=== PATIENT | male | born 1965 ===

== ENCOUNTER 2019-08-29 10:12 | Day surgery (SDC) | payer OTHER ==
[~2019-08-29 10:12] MED LIST: HYDROmorphone 0.5 MG/0.5 ML SYRINGE IVP PRN; LACTATED RINGERS 1,000 ML IV SCH; LIDOCAINE 1% (10MG/ML) FOR IV START INTRADERMA PRN; ONDANSETRON 4 MG/2 ML VIAL IVP PRN; Pre Op ABX Message 1 EACH MISC MISCELLANE ONE
[2019-08-29 11:57] LABS: Glucose,Whole Blood 150 mg/dL (75-99)
[2019-08-29] MEDS ORDERED: ONDANSETRON 4 MG/2 ML VIAL ONE (12:04)
[2019-08-29] MEDS ORDERED: MIDAZOLAM 2 MG/2 ML VIAL IVP ONE (12:20)
[2019-08-29] MEDS ORDERED: PROPOFOL 10 MG/ML 20 ML VIAL IV ONE (12:56)
[2019-08-29] MEDS ORDERED: SUCCINYLCHOLINE CHLORIDE 100 MG/5 ML SYR IV ONE (12:56)
[2019-08-29] MEDS ORDERED: DEXAMETHASONE SOD PHOSPHATE 10 MG/ML 1 ML VIAL ONE (12:56)
[2019-08-29] MEDS ORDERED: fentaNYL (PF) 50 MCG/ML 2 ML AMP ONE (12:56)
[2019-08-29] MEDS ORDERED: MIDAZOLAM 2 MG/2 ML VIAL ONE (12:56)
[2019-08-29] MEDS ORDERED: LIDOCAINE 1%-EPI 1:100,000 20 ML VIAL SQ ONE ×2 (13:26→14:09)
[2019-08-29] MEDS ORDERED: LACTATED RINGERS 1,000 ML IV ONE (14:09)
[2019-08-29 14:47] VITALS: TEMP 97.3
[2019-08-29 14:55] VITALS: RESP 16
[2019-08-29 14:56] LABS: Glucose,Whole Blood 143 mg/dL (75-99)
[2019-08-29] MEDS ORDERED: HYDROcodone/APAP 5-325MG 1 EACH TAB ONE (15:27)
[2019-08-29] MEDS ORDERED: HYDROcodone/APAP 5-325MG 1 EACH TAB PO ONE (15:28)
[2019-08-29 15:44] VITALS: BP 143/86; PULSE 110
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
== END 2019-08-29 16:01 ==
LOC: OR 10:12
PROVIDERS: ATTEND Orthopaedic Surgery
DX: S60.042A Contusion of left ring finger without damage to nail, initial encounter (principal); S66.315A Strain of extensor muscle, fascia and tendon of left ring finger at wrist and hand level, initial encounter; L98.0 Pyogenic granuloma; I10 Essential (primary) hypertension; E11.9 Type 2 diabetes mellitus without complications; F20.9 Schizophrenia, unspecified; K21.9 Gastro-esophageal reflux disease without esophagitis; Z79.84 Long term (current) use of oral hypoglycemic drugs; Z79.899 Other long term (current) drug therapy; Z98.890 Other specified postprocedural states; Z87.891 Personal history of nicotine dependence; Y04.1XXA Assault by human bite, initial encounter
CPT/HCPCS: 88305; 87070; 87205; 87075; 87116; 87102; 87206; 11423; 26180; 11043; 26075; J2250; J1100; J2405; J0696; J3010; J0330; J2704

== ENCOUNTER 2020-03-18 13:08 | Observation (INO) | payer OTHER ==
[2020-03-18] MEDS ORDERED: ONDANSETRON 4 MG/2 ML VIAL IVP STA (14:03)
[2020-03-18] MEDS ORDERED: SODIUM CHLORIDE 0.9% 1,000 ML IV STA ×2 (14:03→16:21)
[2020-03-18] MEDS ORDERED: FAMOTIDINE 20 MG/2 ML VIAL IV STA (14:03)
[2020-03-18] MEDS ORDERED: MAG HYDROX/AL HYDROX/SIMETH 30 ML, HYOSCYAMINE ELIXIR 10 ML, LIDOCAINE VISCOUS 2% 10 ML PO STA ×3 (14:03)
--- NOTE | 2020-03-18 14:10 | ED ---
General Adult HPI - General Chief complaint: Abdominal Pain Stated complaint: Abd Pain Time Seen by Provider: 03/18/20 13:42 Source: patient, RN notes reviewed Mode of arrival: ambulatory Limitations: no limitations - History of Present Illness Initial comments: 55-year-old male with a past medical history of diabetes mellitus, hyperlipidemia, hypertension presents to the emergency room for a chief complaint of upper abdominal pain. Patient reports he has had upper abdominal pain for 2 months. It has been constant. States it is worsening. It is a sharp pain. Denies alleviating or aggravating factors. Patient did have an ultrasound January 08 which revealed enlarged liver without mass or lesion. Tiny gallstones without bile duct dilation. There is a large simple cyst lower pole left kidney. Patient does take meloxicam daily As well as omeprazole daily. Patient admits to nausea vomiting. States he did vomit once this morning and is currently nauseous. Denies diarrhea. Denies fevers. Patient has no other complaints at this time including shortness of breath, chest pain, headache, or visual changes. - Related Data Home Medications Medication Instructions Recorded Confirmed Atorvastatin [Lipitor] 20 mg PO HS 08/25/19 03/18/20 DULoxetine HCL [Cymbalta] 120 mg PO HS 08/25/19 03/18/20 Divalproex [Depakote] 1,500 mg PO HS 08/25/19 03/18/20 Metoprolol Tartrate [Lopressor] 50 mg PO BID 08/25/19 03/18/20 amLODIPine BESYLATE 10 mg PO DAILY 08/25/19 03/18/20 hydrOXYzine pamoate [hydrOXYzine 150 mg PO HS 08/25/19 03/18/20 PAMOATE] hydroCHLOROthiazide [Hydrodiuril] 12.5 mg PO DAILY 08/25/19 03/18/20 Benztropine Mesylate [Cogentin] 1 mg PO HS 03/18/20 03/18/20 Docusate Sodium [Dok] 100 mg PO BID PRN 03/18/20 03/18/20 Magnesium Hydroxide [Milk of 2,400 mg PO HS 03/18/20 03/18/20 Magnesia] Meloxicam [Mobic] 15 mg PO HS 03/18/20 03/18/20 Omeprazole 40 mg PO DAILY 03/18/20 03/18/20 QUEtiapine [SEROquel] 100 mg PO DAILY 03/18/20 03/18/20 QUEtiapine [SEROquel] 400 mg PO HS 03/18/20 03/18/20 Tamsulosin [Flomax] 0.4 mg PO HS 03/18/20 03/18/20 metFORMIN HCL 850 mg PO BID 03/18/20 03/18/20 Previous Rx's Medication Instructions Recorded Amoxic-Pot Clav 875-125Mg 1 tab PO Q12HR 14 Days #28 tab 08/29/19 [Augmentin 875-125] Allergies Allergy/AdvReac Type Severity Reaction Status Date / Time No Known Allergies Allergy Verified 03/18/20 13:52 Review of Systems ROS Statement: Those systems with pertinent positive or pertinent negative responses have been documented in the HPI. ROS Other: All systems not noted in ROS Statement are negative. Past Medical History Past Medical History: Diabetes Mellitus, Hyperlipidemia, Hypertension History of Any Multi-Drug Resistant Organisms: Unobtainable Past Surgical History: Hernia Repair Additional Past Surgical History / Comment(s): pt states Past Anesthesia/Blood Transfusion Reactions: Motion Sickness Additional Past Anesthesia/Blood Transfusion Reaction / Comment(s): pt states Past Psychological History: Bipolar, Schizophrenia Smoking Status: Current some day smoker Past Alcohol Use History: None Reported Past Drug Use History: None Reported - Past Family History Mother History Unknown: Yes Family Medical History: Diabetes Mellitus General Exam Limitations: no limitations General appearance: alert, in no apparent distress Head exam: Present: atraumatic, normal inspection Eye exam: Present: normal appearance, PERRL, EOMI. Absent: periorbital swelling ENT exam: Present: normal exam, mucous membranes moist Neck exam: Present: normal inspection, full ROM. Absent: tenderness Respiratory exam: Present: normal lung sounds bilaterally. Absent: respiratory distress Cardiovascular Exam: Present: regular rate, normal rhythm, normal heart sounds GI/Abdominal exam: Present: soft, distended, tenderness (mild epigastric tenderness. No right upper quadrant or left upper quadrant tenderness. No lower abdominal tenderness.), normal bowel sounds. Absent: guarding, rebound, rigid Expanded GI/Abdominal exam: Absent: Alexis's sign Back exam: Absent: CVA tenderness (R), CVA tenderness (L) Neurological exam: Present: alert Course Vital Signs 03/18/20 13:23 Temperature 98.8 F Pulse Rate 72 Respiratory 18 Rate Blood Pressure 146/86 O2 Sat by Pulse 97 Oximetry Medical Decision Making - Medical Decision Making Vitals are stable. CBC CMP unremarkable. However patient does have pyelonephritis with nitrite-positive urine and a lactic acidosis of 2.5. Patient does not technically meet sepsis criteria but was treated with fluids and antibiotics. CT abdomen and pelvis was obtained which shows wide-shaped enhancement within the upper pole of both kidneys clinically correlated with pyelonephritis as well as bladder wall thickening. There is a slightly nodular configuration of the inferior lingula, recommended 3 month follow-up and remainder of the lung survey. Patient is currently in custody of [facility]. Discussed case with Dr. Kirkpatrick. At this time we felt it was appropriate to admit patient for IV antibiotics pending urine culture. - Lab Data Result diagrams: 03/18/20 15:00 03/18/20 15:00 Lab Results 03/18/20 03/18/20 03/18/20 Range/Units 15:00 15:00 15:00 WBC 7.8 (3.8-10.6) k/uL RBC 5.89 (4.30-5.90) m/uL Hgb 14.4 (13.0-17.5) gm/dL Hct 44.7 (39.0-53.0) % MCV 75.8 L (80.0-100.0) fL MCH 24.4 L (25.0-35.0) pg MCHC 32.2 (31.0-37.0) g/dL RDW 12.2 (11.5-15.5) % Plt Count 190 (150-450) k/uL MPV 9.5 Neutrophils % 65 % Lymphocytes % 19 % Monocytes % 7 % Eosinophils % 6 % Basophils % 1 % Neutrophils # 5.0 (1.3-7.7) k/uL Lymphocytes # 1.5 (1.0-4.8) k/uL Monocytes # 0.6 (0-1.0) k/uL Eosinophils # 0.5 (0-0.7) k/uL Basophils # 0.1 (0-0.2) k/uL Sodium 137 (137-145) mmol/L Potassium 4.3 (3.5-5.1) mmol/L Chloride 100 (98-107) mmol/L Carbon Dioxide 27 (22-30) mmol/L Anion Gap 10 mmol/L BUN 15 (9-20) mg/dL Creatinine 0.79 (0.66-1.25) mg/dL Est GFR (CKD-EPI)AfAm >90 (>60 ml/min/1.73 sqM) Est GFR (CKD-EPI)NonAf >90 (>60 ml/min/1.73 sqM) Glucose 144 H (74-99) mg/dL Plasma Lactic Acid Issa 2.5 H* (0.7-2.0) mmol/L Calcium 9.6 (8.4-10.2) mg/dL Total Bilirubin 0.7 (0.2-1.3) mg/dL AST 52 (17-59) U/L ALT 59 H (4-49) U/L Alkaline Phosphatase 49 (38-126) U/L Total Protein 7.4 (6.3-8.2) g/dL Albumin 4.3 (3.5-5.0) g/dL Amylase 47 (30-110) U/L Lipase 39 (23-300) U/L Urine Color Urine Appearance (Clear) Urine pH (5.0-8.0) Ur Specific [place] (1.001-1.035) Urine Protein (Negative) Urine Glucose (UA) (Negative) Urine Ketones (Negative) Urine Blood (Negative) Urine Nitrite (Negative) Urine Bilirubin (Negative) Urine Urobilinogen (<2.0) mg/dL Ur Leukocyte Esterase (Negative) Urine RBC (0-5) /hpf Urine WBC (0-5) /hpf Urine WBC Clumps (None) /hpf Urine Bacteria (None) /hpf 03/18/20 Range/Units 15:44 WBC (3.8-10.6) k/uL RBC (4.30-5.90) m/uL Hgb (13.0-17.5) gm/dL Hct (39.0-53.0) % MCV (80.0-100.0) fL MCH (25.0-35.0) pg MCHC (31.0-37.0) g/dL RDW (11.5-15.5) % Plt Count (150-450) k/uL MPV Neutrophils % % Lymphocytes % % Monocytes % % Eosinophils % % Basophils % % Neutrophils # (1.3-7.7) k/uL Lymphocytes # (1.0-4.8) k/uL Monocytes # (0-1.0) k/uL Eosinophils # (0-0.7) k/uL Basophils # (0-0.2) k/uL Sodium (137-145) mmol/L Potassium (3.5-5.1) mmol/L Chloride (98-107) mmol/L Carbon Dioxide (22-30) mmol/L Anion Gap mmol/L BUN (9-20) mg/dL Creatinine (0.66-1.25) mg/dL Est GFR (CKD-EPI)AfAm (>60 ml/min/1.73 sqM) Est GFR (CKD-EPI)NonAf (>60 ml/min/1.73 sqM) Glucose (74-99) mg/dL Plasma Lactic Acid Issa (0.7-2.0) mmol/L Calcium (8.4-10.2) mg/dL Total Bilirubin (0.2-1.3) mg/dL AST (17-59) U/L ALT (4-49) U/L Alkaline Phosphatase (38-126) U/L Total Protein (6.3-8.2) g/dL Albumin (3.5-5.0) g/dL Amylase (30-110) U/L Lipase (23-300) U/L Urine Color Yellow Urine Appearance Turbid (Clear) Urine pH 7.5 (5.0-8.0) Ur Specific [place] 1.016 (1.001-1.035) Urine Protein 2+ H (Negative) Urine Glucose (UA) Negative (Negative) Urine Ketones Negative (Negative) Urine Blood Large H (Negative) Urine Nitrite Positive (Negative) Urine Bilirubin Negative (Negative) Urine Urobilinogen <2.0 (<2.0) mg/dL Ur Leukocyte Esterase Large H (Negative) Urine RBC >182 H (0-5) /hpf Urine WBC >182 H (0-5) /hpf Urine WBC Clumps Many H (None) /hpf Urine Bacteria Rare H (None) /hpf Disposition Clinical Impression: Pyelonephritis Disposition: ADMITTED IP TO THIS HOSP Is patient prescribed a controlled substance at d/c from ED?: No Referrals: None,Stated [Primary Care Provider] - 1-2 days Time of Disposition: 16:28 Decision Date: 03/18/20 Decision Time: 16:28
[2020-03-18 15:05] LABS: Basophils # (A) 0.1 k/uL (0-0.2); Basophils % (A) 1 %; Eosinophils # (A) 0.5 k/uL (0-0.7); Eosinophils % (A) 6 %; HCT 44.7 % (39.0-53.0); HGB 14.4 gm/dL (13.0-17.5); Lymphocytes # (A) 1.5 k/uL (1.0-4.8); Lymphocytes % (A) 19 %; MCH 24.4 pg (25.0-35.0); MCHC 32.2 g/dL (31.0-37.0); MCV 75.8 fL (80.0-100.0); Mean Platelet Volume 9.5; Monocytes # (A) 0.6 k/uL (0-1.0); Monocytes % (A) 7 %; Neutrophils % (A) 65 %; Platelet Count 190 k/uL (150-450); RBC 5.89 m/uL (4.30-5.90); RDW 12.2 % (11.5-15.5); WBC 7.8 k/uL (3.8-10.6)
[2020-03-18 15:13] LABS: Potassium 4.3 mmol/L (3.5-5.1)
[2020-03-18 15:14] LABS: ALT 59 U/L (4-49); AST 52 U/L (17-59); African American GFR (CKD) >90 (>60 ml/min/1.73 sqM); Albumin 4.3 g/dL (3.5-5.0); Alkaline Phosphatase 49 U/L (38-126); Amylase 47 U/L (30-110); Anion Gap 10 mmol/L; Blood Urea Nitrogen 15 mg/dL (9-20); Calcium 9.6 mg/dL (8.4-10.2); Carbon Dioxide 27 mmol/L (22-30); Chloride 100 mmol/L (98-107); Glucose 144 mg/dL (74-99); Lipase 39 U/L (23-300); Non-African American GFR(CKD) >90 (>60 ml/min/1.73 sqM); Sodium 137 mmol/L (137-145); Total Bilirubin 0.7 mg/dL (0.2-1.3); Total Protein 7.4 g/dL (6.3-8.2)
--- NOTE | 2020-03-18 16:02 | CT ---
EXAMINATION TYPE: CT abdomen pelvis w con DATE OF EXAM: 03/18/2020 COMPARISON: NONE HISTORY: 55-year-old male Generalized abdominal pain TECHNIQUE: Contiguous axial scanning of the abdomen and pelvis following administration of 100 ml Iso loly 300 IV contrast. Delayed images through the kidneys and coronal/sagittal reconstructions perform ed. CT DLP: 909.7 mGycm Automated exposure control for dose reduction was used. FINDINGS: Heart normal size with trace anterior pericardial fluid. Some strandy atelectasis or scarring at the inferior lingula and peripheral right base. The density at the inferior lingula has a somewhat nodula r configuration measuring up to 7 mm. 3 month follow-up CT chest to reassess. Liver enlarged measuring 20.2 cm with mild fatty infiltration given decreased attenuation. Portal john ous system is patent. No biliary ductal dilatation. Gallbladder, right adrenal gland, spleen, and pancreas within normal limits. Left renal cysts are present measuring up to 4.4 cm. Additional numerous bilateral hepatic hypodensit ies are too small fractures. CT characterization. These also likely represent cysts. However, there is a wedge-shaped area of hypoenhancement within the upper pole of both kidneys, axial image 37 on the right and axial image 34 in the left on the delayed kidney images. No dilated small bowel, free fluid, or free air. No mesenteric or retroperitoneal lymphadenopathy. Normal appendix. There is mild to moderate stool burden. Redundant sigmoid colon. No pericolonic infl ammatory change. Mild circumferential bladder wall thickening. Prostate gland measures 4.7 cm wide. No abnormal fluid collection in the pelvis or pelvic lymphadenopathy. Bones: Mild degenerative change of the hips. Mild degenerative change of the SI joints. Facet arthrop athy mid to lower lumbar spine. No osseous destructive process. IMPRESSION: 1. WEDGE-SHAPED HYPOENHANCEMENT WITHIN THE UPPER POLE OF BOTH KIDNEYS. FINDINGS CAN BE SEEN IN THE SE TTING OF PYELONEPHRITIS. CLINICALLY CORRELATE. 2. ADDITIONAL CIRCUMFERENTIAL BLADDER WALL THICKENING SUGGESTING CYSTITIS. AGAIN, CLINICALLY CORRELAT ION. 3. HEPATOMEGALY (20.2 CM) WITH HEPATIC STEATOSIS. 4. SLIGHTLY NODULAR CONFIGURATION TO THE DENSITY AT THE INFERIOR LINGULA MEASURING 7 MM. RECOMMEND TH REE-MONTH FOLLOW-UP CT CHEST TO REASSESS AND ALSO TO SURVEY THE REMAINDER OF THE LUNGS.
[2020-03-18 16:06] LABS: Appearance,Urine Turbid (Clear); Bacteria,Urine Rare /hpf; Bilirubin,Urine Negative (Negative); Blood,Urine Large (Negative); Color,Urine Yellow; Glucose,Urine (UA) Negative (Negative); Ketones,Urine Negative (Negative); Leukocyte Esterase,Urine Large (Negative); Nitrite,Urine Positive (Negative); PH, Urine 7.5 (5.0-8.0); Protein,Urine 2+ (Negative); RBC,Urine >182 /hpf (0-5); Specific Gravity,Urine 1.016 (1.001-1.035); Urobilinogen,Urine <2.0 mg/dL (<2.0); WBC,Urine >182 /hpf (0-5)
[2020-03-18] MEDS ORDERED: cefTRIAXone IN SWFI 1,000 MG/10 ML SYRINGE IVP STA (16:12)
[2020-03-18] MEDS ORDERED: cefTRIAXone IN SWFI 1,000 MG/10 ML SYRINGE IVP ONE (16:15)
[2020-03-18] MEDS ORDERED: ONDANSETRON 4 MG/2 ML VIAL IVP PRN (16:22)
[2020-03-18] MEDS ORDERED: NALOXONE 0.4 MG/ML 1 ML VIAL IV PRN (16:22)
[2020-03-18] MEDS ORDERED: DOCUSATE 100 MG CAP PO PRN (16:23)
[2020-03-18] MEDS: SODIUM CHLORIDE 0.9% 1,000 ML IV SCH (16:35)
[2020-03-18] MEDS ORDERED: METOPROLOL TARTRATE 50 MG TAB PO STA (18:08)
[2020-03-18] MEDS: INSULIN ASPART (NovoLOG) 100 UNIT/ML VIAL SQ SCH ×2 (18:29→21:38)
[2020-03-18 20:13] LABS: Glucose,Whole Blood 100 mg/dL (75-99)
[2020-03-18] MEDS ORDERED: METOPROLOL TARTRATE 50 MG TAB PO SCH (21:00)
[2020-03-18 21:32] LABS: Glucose,Whole Blood 116 mg/dL (75-99)
[2020-03-18] MEDS: BENZTROPINE MESYLATE 1 MG TAB PO SCH (21:39)
[2020-03-18] MEDS: ATORVASTATIN 20 MG TAB PO SCH (21:39)
[2020-03-18] MEDS: TAMSULOSIN 0.4 MG CAP.ER.24H PO SCH (21:40)
[2020-03-18] MEDS: DIVALPROEX 500 MG TABLET.DR PO SCH (21:40)
[2020-03-18] MEDS: DULoxetine HCL 60 MG CAPSULE.DR PO SCH (21:41)
[2020-03-18] MEDS: hydrOXYzine pamoate 25 MG CAP PO SCH (21:42)
[2020-03-18] MEDS: MAGNESIUM HYDROXIDE 2,400 MG/10 ML CUP PO SCH (21:44)
[2020-03-18] MEDS: QUEtiapine 50 MG TAB PO SCH (22:36)
--- NOTE | 2020-03-19 01:03 | P.HPIM ---
History of Present Illness H&P Date: 03/18/20 Chief Complaint: Abdominal pain Patient is a 55-year-old male with a known history of hypertension, diabetes type 2 [id number], hyperlipidemia, bipolar, schizophrenia and currently everyday smoker was brought to ER from [facility] with complaints of abdominal pain mainly in the left upper abdomen. Patient states that he has been having abdominal pain for the past 2 months. associated with nausea vomiting. Denies any difficulty in food intake. Denies any dysuria or hematuria. No fever no chills. No diarrhea. Patient does have constipation otherwise. Denies any history of reflux disease. Denied any recent illnesses. Denied any other complaints. Patient did have a bowel movement while in the ER. No headache or dizziness lightheadedness. No prior history of abdominal surgeries. Patient had ultrasound of the abdomen done on January 09, 2020 showed hepatomegaly without mass or lesion. Tiny gallstones without bile duct dilation. There is his largest simple cyst lower pole of left kidney. CT of the abdomen pelvis was done in the ER showed with history of hypoenhancement within the upper pole of both kidneys. Findings can be seen in the setting of pyelonephritis. Clinically correlate. Additional circumferential bladder wall thickening suggesting cystitis. Hepatomegaly with hepatic steatosis. Slightly nodular configuration to the density at the inferior lingula measuring 7 mm recommend 3-month follow-up of chest CT to reassess and also to survey the remainder of the lung. Urinalysis showed 2+ protein, large blood, nitrite positive, large leukocyte esterase and greater than 182 RBCs and WBCs Hemoglobin 14.4, WBC 7.8 and platelets 119 Lactic acid 2.5 AST 52 ALT 59 and alk phos 49 Lipase 39 amylase 47 Review of Systems Constitutional: Patient denies any fever or chills . No generalized weakness or weight loss. Abdomen: Abdominal pain associate with nausea. Constipation. No diarrhea.. Cardiovascular: Patient denies any chest pain or short of breath no palpitations. Respiratory: patient denied any cough or sputum production. No shortness of breath Neurologic: Patient denied any numbness or tingling headache. Musculoskeletal: Patient denies any complaints of joint swelling or deformity. Skin: Negative Psychiatric: Negative Endocrine: No heat or cold intolerance. No recent weight gain. Genitourinary: No dysuria or hematuria. All other 14 point ROS negative except the above Past Medical History Past Medical History: Diabetes Mellitus, Hyperlipidemia, Hypertension History of Any Multi-Drug Resistant Organisms: Unobtainable Past Surgical History: Hernia Repair Additional Past Surgical History / Comment(s): pt states Past Anesthesia/Blood Transfusion Reactions: Motion Sickness Additional Past Anesthesia/Blood Transfusion Reaction / Comment(s): pt states Past Psychological History: Bipolar, Schizophrenia Smoking Status: Current some day smoker Past Alcohol Use History: None Reported Past Drug Use History: None Reported - Past Family History Mother History Unknown: Yes Family Medical History: Diabetes Mellitus Medications and Allergies Home Medications Medication Instructions Recorded Confirmed Type Atorvastatin [Lipitor] 20 mg PO HS 08/25/19 03/18/20 History DULoxetine HCL [Cymbalta] 120 mg PO HS 08/25/19 03/18/20 History Divalproex [Depakote] 1,500 mg PO HS 08/25/19 03/18/20 History Metoprolol Tartrate [Lopressor] 50 mg PO BID 08/25/19 03/18/20 History amLODIPine BESYLATE 10 mg PO DAILY 08/25/19 03/18/20 History hydrOXYzine pamoate [hydrOXYzine 150 mg PO HS 08/25/19 03/18/20 History PAMOATE] hydroCHLOROthiazide [Hydrodiuril] 12.5 mg PO DAILY 08/25/19 03/18/20 History Amoxic-Pot Clav 875-125Mg 1 tab PO Q12HR 14 Days #28 tab 08/29/19 03/18/20 Rx [Augmentin 875-125] Benztropine Mesylate [Cogentin] 1 mg PO HS 03/18/20 03/18/20 History Docusate Sodium [Dok] 100 mg PO BID PRN 03/18/20 03/18/20 History Magnesium Hydroxide [Milk of 2,400 mg PO HS 03/18/20 03/18/20 History Magnesia] Meloxicam [Mobic] 15 mg PO HS 03/18/20 03/18/20 History Omeprazole 40 mg PO DAILY 03/18/20 03/18/20 History QUEtiapine [SEROquel] 100 mg PO DAILY 03/18/20 03/18/20 History QUEtiapine [SEROquel] 400 mg PO HS 03/18/20 03/18/20 History Tamsulosin [Flomax] 0.4 mg PO HS 03/18/20 03/18/20 History metFORMIN HCL 850 mg PO BID 03/18/20 03/18/20 History Allergies Allergy/AdvReac Type Severity Reaction Status Date / Time No Known Allergies Allergy Verified 03/18/20 13:52 Physical Exam Vitals: Vital Signs Temp Pulse Resp BP Pulse Ox 03/18/20 17:20 98.2 F 84 18 152/88 98 03/18/20 13:23 98.8 F 72 18 146/86 97 Intake and Output 03/18/20 03/18/20 03/18/20 06:59 14:59 22:59 Other: Weight 72.575 kg PHYSICAL EXAMINATION: Patient is lying in the bed comfortably, no acute distress, awake alert and or iented.. HEENT: Normocephalic. Neck is supple. Pupils reactive. Nostrils clear. Oral cavity is moist. Ears reveal no drainage. Neck reveals no JVD, carotid bruits, or thyromegaly. CHEST EXAMINATION: Trachea is central. Symmetrical expansion. Lung villarreal clear to auscultation and percussion. CARDIAC: Normal S1, S2 with no gallops. No murmurs ABDOMEN: Soft.Nontender. Mild distention. No flank tenderness. Bowel sounds normal. No organomegaly. No abdominal bruits. Extremities: reveal no edema. No clubbing or cyanosis Neurologically awake, alert, oriented x3 with well-coordinated movements. No focal deficits noted Skin: No rash or skin lesions. Psychiatric: Coperative. Nonsuicidal Musculoskeletal: No joint swelling or deformity. Normal range of motion. Results CBC & Chem 7: 03/18/20 15:00 03/18/20 15:00 Labs: Abnormal Lab Results - Last 24 Hours (Table) 03/18/20 03/18/20 03/18/20 Range/Units 15:00 15:00 15:00 MCV 75.8 L (80.0-100.0) fL MCH 24.4 L (25.0-35.0) pg Glucose 144 H (74-99) mg/dL Plasma Lactic Acid Issa 2.5 H* (0.7-2.0) mmol/L ALT 59 H (4-49) U/L Urine Protein (Negative) Urine Blood (Negative) Ur Leukocyte Esterase (Negative) Urine RBC (0-5) /hpf Urine WBC (0-5) /hpf Urine WBC Clumps (None) /hpf Urine Bacteria (None) /hpf 03/18/20 Range/Units 15:44 MCV (80.0-100.0) fL MCH (25.0-35.0) pg Glucose (74-99) mg/dL Plasma Lactic Acid Issa (0.7-2.0) mmol/L ALT (4-49) U/L Urine Protein 2+ H (Negative) Urine Blood Large H (Negative) Ur Leukocyte Esterase Large H (Negative) Urine RBC >182 H (0-5) /hpf Urine WBC >182 H (0-5) /hpf Urine WBC Clumps Many H (None) /hpf Urine Bacteria Rare H (None) /hpf Thrombosis Risk Factor Assmnt - DVT/VTE Prophylaxis DVT/VTE Prophylaxis: Pharmacologic Prophylaxis ordered Assessment and Plan Assessment: Acute pyelonephritis Hepatic steatosis. Abdominal pain likely secondary to above. Nodular density at the inferior lingula 7 mm 3-month follow-up CT was recommended Hypertension Hyperlipidemia Diabetes type 2 [id number] Bipolar disorder and schizophrenia Currently someday smoker DVT prophylaxis with heparin subcu GI prophylaxis with PPI Plan: Patient will be continued on antibiotics in the form of ceftriaxone 1 g daily and IV hydration.Follow-up urine culture report. Continue with PPI, stool softeners and bowel regimen. Continue with home blood pressure medications and insulin sliding scale for better blood sugar control. Follow-up closely and further recommendations based on the clinical course. Time with Patient: Greater than 30
[2020-03-19] MEDS: HEPARIN SODIUM,PORCINE 5,000 UNIT/ML 1 ML VIAL SQ SCH ×3 (01:37→16:52)
[2020-03-19 06:17] LABS: Glucose,Whole Blood 112 mg/dL (75-99)
[2020-03-19] MEDS: SODIUM CHLORIDE 0.9% 1,000 ML IV SCH ×2 (06:17→20:18)
[2020-03-19] MEDS: INSULIN ASPART (NovoLOG) 100 UNIT/ML VIAL SQ SCH ×4 (06:18→20:37)
[2020-03-19] MEDS ORDERED: PANTOPRAZOLE 40 MG TABLET PO SCH (07:30)
[2020-03-19] MEDS: amLODIPine 10 MG TAB PO SCH (08:45)
[2020-03-19] MEDS: QUEtiapine 100 MG TAB PO SCH (08:47)
[2020-03-19] MEDS: PANTOPRAZOLE 40 MG/10 ML VIAL IV SCH (08:52)
[2020-03-19] MEDS ORDERED: cefTRIAXone IN SWFI 1,000 MG/10 ML SYRINGE IVP SCH (09:00)
[2020-03-19 09:49] LABS: Basophils % (A) 1 %; Eosinophils # (A) 0.6 k/uL (0-0.7); Eosinophils % (A) 8 %; HCT 45.1 % (39.0-53.0); HGB 14.5 gm/dL (13.0-17.5); Lymphocytes # (A) 2.5 k/uL (1.0-4.8); Lymphocytes % (A) 31 %; MCH 24.6 pg (25.0-35.0); MCV 76.9 fL (80.0-100.0); Mean Platelet Volume 9.5; Monocytes # (A) 0.5 k/uL (0-1.0); Monocytes % (A) 7 %; Neutrophils # (A) 4.2 k/uL (1.3-7.7); Neutrophils % (A) 52 %; Platelet Count 194 k/uL (150-450); RBC 5.87 m/uL (4.30-5.90); RDW 12.4 % (11.5-15.5); WBC 8.1 k/uL (3.8-10.6)
[2020-03-19 10:01] LABS: African American GFR (CKD) >90 (>60 ml/min/1.73 sqM); Anion Gap 7 mmol/L; Blood Urea Nitrogen 14 mg/dL (9-20); Calcium 9.1 mg/dL (8.4-10.2); Carbon Dioxide 31 mmol/L (22-30); Chloride 102 mmol/L (98-107); Glucose 152 mg/dL (74-99); Non-African American GFR(CKD) >90 (>60 ml/min/1.73 sqM); Potassium 4.5 mmol/L (3.5-5.1); Sodium 140 mmol/L (137-145)
[2020-03-19] MEDS: hydroCHLOROthiazide 12.5 MG CAP PO SCH (10:43)
[2020-03-19 11:54] LABS: Glucose,Whole Blood 188 mg/dL (75-99)
[2020-03-19 16:51] LABS: Glucose,Whole Blood 106 mg/dL (75-99)
[2020-03-19] MEDS: KETOROLAC 15 MG/ML 1 ML VIAL IVP PRN (19:00)
[2020-03-19] MEDS ORDERED: HYDROcodone/APAP 5-325MG 1 EACH TAB PO STA (20:26)
[2020-03-19 20:30] LABS: Glucose,Whole Blood 157 mg/dL (75-99)
[2020-03-19] MEDS: MAGNESIUM HYDROXIDE 2,400 MG/10 ML CUP PO SCH (20:40)
[2020-03-19] MEDS: ATORVASTATIN 20 MG TAB PO SCH (20:40)
[2020-03-19] MEDS: TAMSULOSIN 0.4 MG CAP.ER.24H PO SCH (20:40)
[2020-03-19] MEDS: DULoxetine HCL 60 MG CAPSULE.DR PO SCH (20:40)
[2020-03-19] MEDS: DIVALPROEX 500 MG TABLET.DR PO SCH (20:41)
[2020-03-19] MEDS: BENZTROPINE MESYLATE 1 MG TAB PO SCH (20:42)
[2020-03-19] MEDS: hydrOXYzine pamoate 25 MG CAP PO SCH (20:43)
[2020-03-19] MEDS: QUEtiapine 50 MG TAB PO SCH (20:43)
[2020-03-19] MEDS ORDERED: QUEtiapine 400 MG TAB PO SCH (21:00)
[2020-03-20] MEDS: HEPARIN SODIUM,PORCINE 5,000 UNIT/ML 1 ML VIAL SQ SCH ×2 (00:01→08:12)
[2020-03-20 06:29] LABS: Glucose,Whole Blood 190 mg/dL (75-99)
[2020-03-20] MEDS: INSULIN ASPART (NovoLOG) 100 UNIT/ML VIAL SQ SCH ×2 (06:32→12:16)
[2020-03-20] MEDS: KETOROLAC 15 MG/ML 1 ML VIAL IVP PRN (08:13)
[2020-03-20] MEDS: PANTOPRAZOLE 40 MG/10 ML VIAL IV SCH (08:14)
[2020-03-20] MEDS: amLODIPine 10 MG TAB PO SCH (08:14)
[2020-03-20] MEDS: hydroCHLOROthiazide 12.5 MG CAP PO SCH (08:15)
[2020-03-20] MEDS: QUEtiapine 100 MG TAB PO SCH (08:16)
[2020-03-20] MEDS ORDERED: METOPROLOL TARTRATE 50 MG TAB PO SCH (09:00)
[2020-03-20 09:18] VITALS: BP 165/93; PULSE 94; RESP 16; TEMP 98
[2020-03-20] MEDS ORDERED: lisinopriL 5 MG TAB PO SCH (09:45)
--- NOTE | 2020-03-20 09:45 | P.PN ---
Subjective Progress Note Date: 03/19/20 Principal diagnosis: Acute pyelonephritis Patient is a 55-year-old male with a known history of hypertension, diabetes type 2 [id number], hyperlipidemia, bipolar, schizophrenia and currently everyday smoker was brought to ER from [facility] with complaints of abdominal pain mainly in the left upper abdomen. Patient states that he has been having abdominal pain for the past 2 months. associated with nausea vomiting. Denies any difficulty in food intake. Denies any dysuria or hematuria. No fever no chills. No diarrhea. Patient does have constipation otherwise. Denies any history of reflux disease. Denied any recent illnesses. Denied any other complaints. Patient did have a bowel movement while in the ER. No headache or dizziness lightheadedness. No prior history of abdominal surgeries. Patient had ultrasound of the abdomen done on January 09, 2020 showed hepatomegaly without mass or lesion. Tiny gallstones without bile duct dilation. There is his largest simple cyst lower pole of left kidney. CT of the abdomen pelvis was done in the ER showed with history of hypoenhancement within the upper pole of both kidneys. Findings can be seen in the setting of pyelonephritis. Clinically correlate. Additional circumferential bladder wall thickening suggesting cystitis. Hepatomegaly with hepatic steatosis. Slightly nodular configuration to the density at the inferior lingula measuring 7 mm recommend 3-month follow-up of chest CT to reassess and also to survey the remainder of the lung. Urinalysis showed 2+ protein, large blood, nitrite positive, large leukocyte esterase and greater than 182 RBCs and WBCs Hemoglobin 14.4, WBC 7.8 and platelets 119 Lactic acid 2.5 AST 52 ALT 59 and alk phos 49 Lipase 39 amylase 47 03/19/20 Patient is currently sitting in the bed. Still complains of flank pain and nausea. Oral intake improved compared to yesterday. Patient has been afebrile. Urine culture report is pending. Continued on antibiotics the form of ceftriaxone. Anticipate discharge once the cultures are finalized and improvement in clinical status. Current medications reviewed. Objective - Vital Signs Vital signs: Vital Signs Temp 97.9 F 03/19/20 15:48 Pulse 85 03/19/20 15:48 Resp 12 03/19/20 15:48 BP 154/84 03/19/20 15:48 Pulse Ox 95 03/19/20 08:38 Intake & Output 01/03/19/20 03/19/20 18:59 06:59 18:59 Weight 72.575 kg 72.575 kg Other: Voiding Method Toilet Toilet # Voids 1 1 - Exam PHYSICAL EXAMINATION: Patient is lying in the bed comfortably, no acute distress, awake alert and oriented.. HEENT: Normocephalic. Neck is supple. Pupils reactive. Nostrils clear. Oral cavity is moist. Ears reveal no drainage. Neck reveals no JVD, carotid bruits, or thyromegaly. CHEST EXAMINATION: Trachea is central. Symmetrical expansion. Lung villarreal clear to auscultation and percussion. CARDIAC: Normal S1, S2 with no gallops. No murmurs ABDOMEN: Soft. Bowel sounds normal. No organomegaly. No abdominal bruits. Extremities: reveal no edema. No clubbing or cyanosis Neurologically awake, alert, oriented x3 with well-coordinated movements. No focal deficits noted Skin: No rash or skin lesions. Psychiatric: Coperative. Nonsuicidal Musculoskeletal: No joint swelling or deformity. Normal range of motion. - Labs CBC & Chem 7: 03/19/20 09:22 03/19/20 09:22 Labs: Abnormal Lab Results - Last 24 Hours (Table) 03/18/20 03/18/20 03/19/20 Range/Units 20:11 21:30 06:14 MCV (80.0-100.0) fL MCH (25.0-35.0) pg Carbon Dioxide (22-30) mmol/L Glucose (74-99) mg/dL POC Glucose (mg/dL) 100 H 116 H 112 H (75-99) mg/dL 03/19/20 03/19/20 03/19/20 Range/Units 09:22 09:22 11:53 MCV 76.9 L (80.0-100.0) fL MCH 24.6 L (25.0-35.0) pg Carbon Dioxide 31 H (22-30) mmol/L Glucose 152 H (74-99) mg/dL POC Glucose (mg/dL) 188 H (75-99) mg/dL Microbiology - Last 24 Hours (Table) 03/18/20 15:44 Urine Culture - Preliminary Urine,Voided Assessment and Plan Assessment: Acute pyelonephritis Hepatic steatosis. Abdominal pain likely secondary to above. Nodular density at the inferior lingula 7 mm 3-month follow-up CT was recommended Hypertension Hyperlipidemia Diabetes type 2 [id number] Bipolar disorder and schizophrenia Currently someday smoker DVT prophylaxis with heparin subcu GI prophylaxis with PPI Plan: Patient will be continued on antibiotics in the form of ceftriaxone 1 g daily and IV hydration.Follow-up urine culture report. Continue with PPI, stool softeners and bowel regimen. Continue with home blood pressure medications and insulin sliding scale for better blood sugar control. Follow-up closely and further recommendations based on the clinical course. Time with Patient: Greater than 30
[2020-03-20 11:21] LABS: Glucose,Whole Blood 144 mg/dL (75-99)
== END 2020-03-20 12:36 ==
LOC: EC 13:08 → 1SOBS 16:16
PROVIDERS: ADMIT Hospitalist; ATTEND Hospitalist
DX: N10 Acute pyelonephritis (principal); E87.2 Acidosis; K76.0 Fatty (change of) liver, not elsewhere classified; E11.9 Type 2 diabetes mellitus without complications; E78.5 Hyperlipidemia, unspecified; I10 Essential (primary) hypertension; N28.1 Cyst of kidney, acquired; K80.20 Calculus of gallbladder without cholecystitis without obstruction; F20.9 Schizophrenia, unspecified; F31.9 Bipolar disorder, unspecified; K59.00 Constipation, unspecified; J98.4 Other disorders of lung; F17.200 Nicotine dependence, unspecified, uncomplicated; Z79.84 Long term (current) use of oral hypoglycemic drugs; Z79.1 Long term (current) use of non-steroidal anti-inflammatories (NSAID); Z79.899 Other long term (current) drug therapy; Z98.890 Other specified postprocedural states; Z83.3 Family history of diabetes mellitus
CPT/HCPCS: 96365; 96366; 96372 ×2; 96375 ×2; 96376 ×2; 96361; 99285; 36415; 80053; 80048; 82150; 83605; 83690; 85025 ×2; 81001; 87040; 87086; 87077; 87186; 74177; G0378 ×3; J1644 ×2; J2405; J0696 ×2; J1885 ×2; C9113 ×2; Q9967